=== PATIENT | male | born 1995 | race Caucasian/White ===

== ENCOUNTER 2024-05-25 16:36 | Emergency (ER) | payer OTHER ==
[2024-05-25 16:43] VITALS: BP 127/77; PULSE 52; RESP 18; TEMP 98.7; BMI 29.6
== END 2024-05-25 19:15 | disposition home or self-care (01) ==
LOC: JER 16:36
DX: R53.1 Weakness (principal); R42 Dizziness and giddiness
CPT/HCPCS: 93005; 93010; 99283-25